=== PATIENT | female | born 2000 | race Two or more races ===

== ENCOUNTER 2022-06-16 10:14 | Emergency (ER) | payer OTHER ==
[~2022-06-16] VITALS: Ht 165.1 cm; Wt 91.0 kg
[2022-06-16 11:00] VITALS: BP 125/87
[2022-06-16] MEDS ORDERED: NEO/5DRO3 OP (11:05)
[2022-06-16] MEDS ORDERED: ERYT1OIN6 EACHEYE (12:10)
[2022-06-16] MEDS ORDERED: SULF1TAB48 MT (12:10)
== END 2022-06-16 12:37 | disposition home or self-care (01) ==
LOC: ER 10:14
DX: L03.213 Periorbital cellulitis (principal)
CPT/HCPCS: 99283